=== PATIENT | female | born 1950 | race Caucasian/White ===

== ENCOUNTER 2018-10-25 02:46 | Inpatient (IN) ==
[2018-10-25 03:21] LABS: BASO# 0.03 X1000 (0.0-0.2); BASO% 0.5 % (0.0-0.8); EOS# 0.14 X1000 (0.0-0.7); EOS% 2.3 % (0.0-10.0); HEMATOCRIT 34.3 % (37.0-47.0); HEMOGLOBIN 11.8 g/dL (12.0-16.0); LYMPH# 1.24 X1000 (1.2-3.4); LYMPH% 20.2 % (20.5-51.1); MCH 29.1 PG (27-31); MCHC 34.4 g/dL (33-37); MCV 84.5 FL (81-99); MONO# 0.48 X1000 (0.11-0.59); MONO% 7.8 % (1.7-9.3); MPV 8.9 FL (7.4-10.4); NEUT# 4.24 X1000 (1.4-6.5); NEUT% 69.2 % (42.2-75.2); PLT 233 X1000 (130-400); RBC 4.06 XMIL (4.2-5.4); WBC 6.13 X1000 (4.8-10.8)
--- NOTE | 2018-10-25 03:26 | PROVIDER DOCUMENTATION ---
HPI-General Adult - General Chief Complaint: Altered Mental Status Stated Complaint: ams Time Seen by Provider: 10/25/18 02:53 Source: patient, family, EMS Allergies/Adverse Reactions: Patient Allergies Allergy/AdvReac Type Severity Reaction Status Date / Time No Known Allergies Allergy Verified 10/17/16 16:28 Home Medications: Home Medication List Medication Instructions Recorded Confirmed Last Taken Type Albuterol Sulfate [Ventolin Hfa] 18 gm IH PRN PRN 05/29/16 10/17/16 Unknown History Aspirin 81 mg PO DAILY 05/29/16 10/17/16 10/17/16 History Azelastine 0.05% Oph Solution 1 drop OP BID 05/29/16 10/17/16 Unknown History [Optivar 0.05% Oph Solution] Cetirizine HCl [Zyrtec] 10 mg PO DAILY 05/29/16 10/17/16 05/29/16 History Cyclosporine 0.05% Oph Drops 1 each BOTH EYES DAILY 05/29/16 10/17/16 Unknown History [Restasis 0.05% Oph Drops] Esomeprazole [Nexium] 40 mg PO DAILY 05/29/16 10/17/16 05/29/16 History Iron Fum/Folic Acid/Mv,Min 15 1 each PO DAILY 05/29/16 10/17/16 05/29/16 History [Centratex Capsule] Latanoprost 0.005% Oph Soln 1 drop OP HS 05/29/16 10/17/16 10/17/16 History [Xalatan 0.005% Oph Soln] Polyethylene Glycol [Polyox 1 gm MC DAILY 05/29/16 10/17/16 Unknown History [id number]] Tolterodine [Detrol] 2 mg PO BID 05/29/16 10/17/16 05/29/16 History Cyclobenzaprine [Flexeril] 10 mg PO BID #10 tablet 10/01/17 Unknown Rx Ketorolac [Toradol] 10 mg PO Q8H PRN PRN #15 tablet 10/01/17 Unknown Rx - History of Present Illness -Gen Adult Nature of Presenting Problems: Pt presents with AMS, pt was found by her family in her room, not speaking, confused, not following commands, pt has MR at baseline, upon arrival to the ED pt was close to baseline per sister, pt denies f/c, [place], cp, sob, cough, ap, n/v/d. pt is lying in bed in no acute distress. Location of Pain/Injury: reports: none Pain Radiation: reports: no radiation Quality of Pain: reports: none Severity: reports: mild Onset/Duration: reports: 1-3 hours ago Timing: reports: improving Context/Activities at Onset: reports: none Modifying Factors: improves with: nothing Associated Symptoms: reports: denies symptoms Review of Systems - Adult - REVIEW OF SYSTEMS - ADULT Constitutional: reports: see HPI Eyes: reports: no symptoms reported Ears, Nose, Mouth & Throat: reports: no symptoms reported Cardiovascular: reports: no symptoms reported Respiratory: reports: no symptoms reported Gastrointestinal: reports: no symptoms reported Genitourinary: reports: no symptoms reported Musculoskeletal: reports: no symptoms reported Integumentary: reports: no symptoms reported Neurological: reports: no symptoms reported Psychiatric: reports: no symptoms reported Endocrine: reports: no symptoms reported Hematologic/Lymphatic: reports: no symptoms reported Allergic/Immunologic: reports: no symptoms reported All Other Systems: Reviewed and Negative Past History - Adult - PAST MEDICAL HISTORY-ADULT Review of Records: reports: Old Records Reviewed, Nursing Assessment Review, Medications Reviewed, Social history reviewed & non-contributory. Major Childhood Illnesses: reports: denies history Cardiovascular: reports: HTN Respiratory: reports: denies history Gastrointestinal: reports: denies history Obstetrical/Gynecological: reports: denies history Genitourinary: reports: denies history Musculoskeletal: reports: denies history Neurological: reports: denies history Psychiatric: reports: other (mentally handicapped) Endocrine/Immune: reports: denies history Other Conditions: reports: denies history - PRIOR SURGERIES/PROCEDURES Surgical/Procedure History: reports: reviewed, not pertinent - IMMUNIZATION STATUS Childhood Immunizations: See Nurse Assessment Flu Vaccine: See Nurse Assessment - FAMILY HISTORY Family History: reviewed, not pertinent Physical Exam-General - PHYSICAL EXAM-ADULT Initial Vital Signs Reviewed: Yes - CONSTITUTIONAL General Appearance: no apparent distress - EYES Eyes: PERRL/EOMI - HEAD, EARS, NOSE, MOUTH & THROAT HENMT: normal ENT inspection - NECK Neck: normal inspection - RESPIRATORY Respiratory: no respiratory distress, no accessory muscle use - CARDIOVASCULAR Cardiovascular: regular rate, rhythm - GASTROINTESTINAL (ABDOMEN) Abdominal Exam: non tender, soft - LYMPHATIC Lymphatic: no adenopathy - MUSCULOSKELETAL Back Exam: normal inspection Extremity: normal range of motion - SKIN Integumentary: normal color - NEUROLOGIC Neurologic: grossly normal - PSYCHIATRIC Psych/Mental Status: normal mood/affect Progress - PLAN OF CARE/RESULTS Progress/Plan/Lab Results: Vital Signs - 8 hr 10/25/18 03:07 Temperature 97.6 F Pulse Rate 82 Respiratory Rate 22 Blood Pressure 160/81 O2 Sat by Pulse Oximetry 96 Laboratory Results - last 24 hr 10/25/18 02:58 WBC 6.13 RBC 4.06 L Hgb 11.8 L Hct 34.3 L MCV 84.5 MCH 29.1 MCHC 34.4 RDW Std Deviation 13.0 Plt Count 233 MPV 8.9 Neut % (Auto) 69.2 Lymph % (Auto) 20.2 L Treasure % (Auto) 7.8 Eos % (Auto) 2.3 Baso % (Auto) 0.5 Neut # (Auto) 4.24 Lymph # (Auto) 1.24 Treasure # (Auto) 0.48 Eos # (Auto) 0.14 Baso # (Auto) 0.03 Orders Category Date Time Status Nursing- Obtain EKG ONCE Care 10/25/18 03:[address] HEAD W/O CONTRAST [CT] Stat Exams 10/25/18 03:01 Taken cxr [CHEST-1 VIEW] [RAD] Stat Exams 10/25/18 03:01 Taken CBC WITH ELECTRONIC DIFF [HEME] Stat Lab 10/25/18 02:58 Completed COMPREHENSIVE METABOLIC PANEL [CHEM] Stat Lab 10/25/18 02:58 Received LACTATE, PLASMA [CHEM] Stat Lab 10/25/18 03:06 Received LIPASE [CHEM] Stat Lab 10/25/18 02:58 Received PRO B-NATRIURETIC PEPTIDE Stat Lab 10/25/18 02:58 Received TROPONIN T Stat Lab 10/25/18 02:58 Received UA [URINALYSIS] [URINALYSIS] Stat Lab 10/25/18 03:02 Uncollected EKG [EKG] Stat Ther 10/25/18 03:02 Ordered CXR concerning for aspiration, pt had O2 sat drop to mid 80s with walking on RA, will cover with abx and admit Result Diagrams: 10/25/18 02:58 10/25/18 02:58 Departure - Departure Date of Disposition Decision: 10/25/18 Time of Disposition Decision: 06:06 DIAGNOSIS: Aspiration pneumonia Qualifiers: Aspiration pneumonia type: due to vomit Laterality: bilateral Lung location: unspecified part of lung Qualified Code(s): J69.0 - Pneumonitis due to inhalation of food and vomit Disposition: ADMITTED INPATIENT 09 Certified Medical Emergency: Emergent Condition: Stable Referrals and Follow-Ups: Miky Cole DO [Primary Care Provider] - - Critical Care Note This patient required my direct & personal management of CC.: No Attestation - Physician/ PALLAVI Attestation Patient care was provided by Advanced Practice Provider:: No The physician spent face to face time with patient:: Yes Advanced Practice Provider documentation review:: Supervising physician onsite and consulted in the evaluation and care of this patient. The physician did have a face to face encounter with the patient.
[2018-10-25 03:59] LABS: AGAP 16; ALB/GLOB RATIO 1.4; ALBUMIN 4.2 g/dL (3.5-5.0); ALKALINE PHOSPHATASE 119 U/L (32-104); BUN 12 mg/dL (8-22); CALCIUM 9.5 mg/dL (8.8-10.2); CHLORIDE 90 mmol/L (98-107); COSMO 260; CREATININE 0.9 mg/dL (0.5-0.9); ESTIMATED GFR > 60; GLUCOSE 115 mg/dL (70-104); GOT 30 U/L (10-30); GPT 18 U/L (10-36); LIPASE 71 U/L (13-60); POTASSIUM 4.5 mmol/L (3.5-5.1); SODIUM 129 mmol/L (136-145); TCO2 23 mmol/L (25-35); TOTAL BILIRUBIN 0.37 mg/dL (0.20-1.00); TOTAL PROTEIN 7.1 g/dL (6.3-8.3)
[2018-10-25] MEDS ORDERED: NS 1,000 ML IV ONE (05:12)
[2018-10-25] MEDS ORDERED: MORPHINE IV ONE (05:45)
[2018-10-25] MEDS ORDERED: UNASYN 1.5 GM/NS 1.5 GM/50 ML IVPB IV ONE (05:45)
[2018-10-25 05:53] LABS: URINE SOURCE CLEAN CATCH
[2018-10-25 05:59] LABS: BILIRUBIN URINE NEGATIVE (NEGATIVE); BLOOD URINE NEGATIVE (NEGATIVE); COLOR STRAW; GLUCOSE URINE NEGATIVE (NEGATIVE); KETONE URINE NEGATIVE (NEGATIVE); LEUKOCYTES URINE NEGATIVE (NEGATIVE); NITRITE URINE NEGATIVE (NEGATIVE); PH URINE 7.5; PROTEIN URINE NEGATIVE (NEGATIVE); TURBIDITY URINE CLEAR (CLEAR); UROBILINOGEN URINE NORMAL (NORMAL)
[2018-10-25 06:00] LABS: UR EPITHELIAL CELLS <10 /HPF (<10); URINE BACTERIA NEGATIVE /HPF; URINE RBC <10 /HPF (<10); URINE WBC <10 /HPF (<10)
--- NOTE | 2018-10-25 07:03 | Diag Imaging Result Doc PS360 ---
EXAM: CT HEAD W/O CONTRAST 10/25/2018 HISTORY: ams TECHNIQUE: This exam was performed using automated exposure control, adjustment of mA or kV according to patient size, and/or use of iterative reconstruction technique. COMMENT: There is no evidence of mass effect, bleed, or abnormal extra-axial fluid collection. The visualized paranasal sinuses are clear. The calvarium is intact. Compared to the previous exam of 10/01/2017 there has been no significant change. IMPRESSION: No evidence of acute intracranial disease. Electronically signed by Wyatt Grubbs 10/25/2018 7:01 AM
--- NOTE | 2018-10-25 07:07 | Diag Imaging Result Doc PS360 ---
EXAM: CT THORAX W/O CONTRAST 10/25/2018 HISTORY: aspiration TECHNIQUE: This exam was performed using automated exposure control, adjustment of mA or kV according to patient size, and/or use of iterative reconstruction technique. COMMENT: The current examination is compared with the previous study of 10/01/2017. There are some partially calcified right paratracheal and right hilar nodes. There is pleural thickening with calcification on the right. There are calcified granulomata in the spleen and there are calcified gallstones in the gallbladder. There is an apical pleural-based nodule in the right upper lobe which has not changed. Multiple smaller dense pleural-based nodules are present particularly in the right upper lobe. There is some dependent atelectasis bilaterally as well as what is likely to be a linear fibrotic scar in the posterior costophrenic sulcus on the right. This has not changed. There is minimal fibrosis present in the inferior lingula. There is ill-defined opacity posteriorly in the left upper lobe which was not present at the time the previous study this is in a different distribution from a more laterally/pleural-based opacity which was present in the left upper lobe at the time the previous study. The regional skeleton is stable in appearance. IMPRESSION: Minimal pneumonitis in the left upper lobe posteriorly. Otherwise stable chronic findings as described above. Electronically signed by Wyatt Grubbs 10/25/2018 7:05 AM
--- NOTE | 2018-10-25 08:16 | Diag Imaging Result Doc PS360 ---
EXAM: CHEST-1 VIEW 10/25/2018 HISTORY: ams TECHNIQUE: AP portable at 0317 COMMENT: The inspiration is suboptimal. There is no focal pulmonary opacity. IMPRESSION: Poor inspiration. Electronically signed by Wyatt Grubbs 10/25/2018 8:13 AM
[2018-10-25] MEDS ORDERED: ZOFRAN IV PRN (08:52)
[2018-10-25] MEDS ORDERED: SODIUM CHLORIDE 0.9% INJ SCH (09:00)
[2018-10-25] MEDS: DUONEB (A & A) INH SCH ×3 (09:39→21:30)
--- NOTE | 2018-10-25 10:07 | EKG Report ---
Test Performed on : 10/25/2018 02:57:26 AM Test Reason : ams Blood Pressure : / mmHG Vent. Rate : 084 BPM Atrial Rate : 084 BPM P-R Int : 202 ms QRS Dur : 098 ms QT Int : 392 ms P-R-T Axes : 029 -21 015 degrees QTc Int : 463 ms Normal sinus rhythm. Possible Left atrial enlargement Left ventricular hypertrophy Abnormal ECG When compared with ECG of 01-OCT-2017 16:38, No significant change was found Unconfirmed Result
--- NOTE | 2018-10-25 11:04 | HISTORY AND PHYSICAL ---
CHIEF COMPLAINT: Altered mental status. HISTORY OF PRESENT ILLNESS: This is a 68-year-old female with a history of gastroesophageal reflux disease as well as MR and hypertension. She lives with her sister. The sister states that she heard the patient calling for help. When she in, she was unable to get her awake fully. She did state over the past 2 to 3 days, the patient has been dry heaving with no witnessed vomiting as well as complaining of abdominal pain and pain behind her right knee. The patient has experienced multiple falls with increasing general weakness over the past 3 weeks. The sister denied seeing black or bloody vomitus or stools. No fevers or chills. PAST MEDICAL HISTORY: She is mentally handicapped. Hypertension. Gastroesophageal reflux disease. PAST SURGICAL HISTORY: Hysterectomy. SOCIAL HISTORY: There is no alcohol, tobacco, or illicit drug use. She does live with her sister. ALLERGIES: No known drug allergies. HOME MEDICATIONS: A list will be obtained by the nursing staff and once verified we will review and restart it as appropriate. REVIEW OF SYSTEMS: Unable to obtain from the patient. Pertinent positives per the sister stated in the history of present illness. PHYSICAL EXAMINATION: GENERAL: This is a 68-year-old female who is lying in the bed asleep at present, in no distress. VITAL SIGNS: Blood pressure is 151/86 with a heart rate of 83, respirations are 21, temperature 98 with room air saturation of 91 to 94 percent. HEENT: Head is normocephalic, atraumatic. Mucous membranes are moist. NECK: Supple. Trachea midline. No JVD. CARDIOVASCULAR: Regular rate and rhythm. S1 and S2 are appreciated. No murmur. She has no lower extremity edema. Peripheral pulses are palpable x4 extremities. PULMONARY: Breath sounds are clear. No increased work of breathing noted. Chest rises and falls symmetric with respiration. Chest wall is nontender to palpation gastrointestinal. GASTROINTESTINAL: Abdomen is soft, nontender, nondistended with bowel sounds in all 4 quadrants. NEUROLOGIC: The patient did awaken during exam. She is alert. She is oriented to herself, her sister. She knows she is at a hospital. SKIN: Warm and dry. LABORATORIES: WBC is 6.1 with hemoglobin 11.8, hematocrit 34.3, platelets 233,000. Sodium 129, potassium 4.5, BUN 12, creatinine 0.9, glucose 115. Troponin is negative. Lipase is 71. Lactate is 3.2. Urinalysis is essentially negative. IMAGING: Chest x-ray suboptimal due to poor inspiration. CT of the chest without contrast revealed pneumonitis in the left upper lobe, otherwise, stable chronic findings. CT of the head revealed no evidence of acute intracranial disease. ASSESSMENT AND PLAN: 1. Aspiration pneumonitis. The patient will be NPO at present. We will order a swallow evaluation by Speech Therapy, blood cultures and sputum culture. Start antibiotic coverage of linezolid and cefepime with DuoNeb q.6 hours. Incentive spirometer q.4 hours when awake. 2. Hyponatremia. She was given IV fluids in the emergency room. Continue with gentle hydration, and monitor labs. Review her home medications for those that could contribute to hyponatremia. 3. Gastroesophageal reflux disease. Aware. Protonix . 4. Pain in her right posterior knee. We will get a venous Doppler to the right lower extremity. 5. Further treatments pending hospital course. Dictated by KIM Hurtado for Aisha Hicks MD cc: KIM Hurtado MD [facility]
[2018-10-25] MEDS ORDERED: LOVENOX 1 MG/KG SUBQ SCH (11:15)
[2018-10-25] MEDS: NS 1,000 ML IV SCH ×2 (11:46→23:12)
[2018-10-25] MEDS: MAXIPIME 1 GM in NS 50 ML IV SCH ×2 (11:47→23:03)
[2018-10-25] MEDS: ZYVOX 600 MG/D5W 600 MG/300 ML IVPB IV SCH ×2 (11:47→23:12)
[2018-10-25] MEDS: TYLENOL PO PRN ×2 (11:53→17:58)
[2018-10-25] MEDS: LOVENOX SUBQ SCH ×2 (15:18→23:03)
--- NOTE | 2018-10-25 21:52 | ECHO REPORT ---
ORDER DATE: 10/25/2018 MEASUREMENTS: 1. Left ventricular internal diameter diastole 4.6. 2. Septal thickness 0.7. 3. Aortic root 2.7. 4. Left atrium 3.9. SUMMARY: 1. Technically difficult study due to limited acoustic window quality. Intravenous echo contrast agent Optison was utilized to enhance endocardial definition. 2. Aortic valve is trileaflet and opens normally on 2-dimensional images. Peak gradient across the aortic valve is 24 mmHg with a mean gradient 11 mmHg. Doppler velocities across the aortic valve appear to be elevated due to dynamic left ventricular function. There is mild aortic regurgitation. Mitral, tricuspid, and pulmonic valves are without evidence of structural abnormality with trace mitral regurgitation and trace tricuspid regurgitation. The estimated systolic PA pressure by Doppler is 35 to 40 mmHg suggesting mild pulmonary hypertension. Aortic root is normal in size. 3. Normal left ventricle dimensions suggested on 2-dimensional images. Estimated left ventricular ejection fraction appears to be at least 70%. No regional wall motion abnormalities evident. Doppler suggests grade 1 left ventricular diastolic dysfunction. Left atrium is borderline enlarged. Right atrium and right ventricle are normal in size with normal right ventricular systolic function. 4. No pericardial effusion. 5. Appearance of inferior vena cava suggests normal central venous pressure. cc: MD Aisha Gaspar MD
[2018-10-25] MEDS: OPTIVAR 0.05% OPH SOLUTION BOTH EYES SCH (22:06)
[2018-10-25] MEDS: XANAX PO SCH (22:06)
[2018-10-25] MEDS: XALATAN 0.005% OPH SOLN BOTH EYES SCH (22:06)
[2018-10-26] MEDS: TYLENOL PO PRN
--- NOTE | 2018-10-26 01:56 | PULMONOLOGY CONSULTATION ---
DATE: 10/25/2018 REQUESTING PHYSICIAN: Dr. Hicks. REASON FOR CONSULTATION: Aspiration pneumonitis. HISTORY OF PRESENT ILLNESS: Ms Álvarez is a 68-year-old white female with history of an intellectual disability, who was found confused and not speaking by her family. The patient was brought to the emergency room but was near her baseline upon arrival. The patient underwent a CT scan of the brain which revealed no evidence of acute disease. The patient's sister reports that she is had several falls recently and has complained about abdominal pain. She has had periods of dry heaving. She underwent CT scan of the thorax, which reveals some minimal pneumonitis in the left upper lobe. The patient is without specific complaints. She is very poor historian, but does report some epigastric pain. PAST MEDICAL HISTORY/PROBLEM LIST: 1. Intellectual disability with mental retardation as per above. 2. Gastroesophageal reflux disease. 3. Hypertension. 4. Status post hysterectomy. SOCIAL HISTORY: The patient lives with her sister. She has no history of alcohol or tobacco use. REVIEW OF SYSTEMS: Limited when discussing with the patient. The patient reports that she did have a small dog that was recently hit by a car, but it is not clear this is a true story or not. PHYSICAL EXAMINATION: General: Reveals a well-developed, well-nourished female, resting comfortably and in no distress. Vital signs: Blood pressure 143/60, heart rate 70, respiratory rate 18, oxygen saturation 96% on room air. HEENT: Pupils are equal and reactive. Oropharynx is clear. Neck: Supple. Chest: Reveals good air entry bilaterally without wheezing or rhonchi. Cardiac: S1, S2. Abdomen: Soft. She may have minimal epigastric tenderness. Extremities: Without edema. LABORATORIES: CT scan of the thorax is reviewed. She has some nonspecific nodules which have not changed compared to 10/01/2017. She has a new nonspecific infiltrate in the left upper lobe which was not previously present. The gallbladder is visualized and she does have gallstones in the neck of the gallbladder along with higher up in the gallbladder. IMPRESSION: A 68-year-old with minor aspiration pneumonia following episode of dry heaves. The patient does report some mild epigastric pain. She has mild elevation in the alkaline phosphatase and does have gallstones in the gallbladder. RECOMMENDATIONS: 1. Agree with current antibiotic regimen. 2. We will schedule ultrasound of the abdomen to further evaluate her epigastric pain and possible cause of her nausea. cc: Lele Mcguire MD
[2018-10-26] MEDS: DUONEB (A & A) INH SCH ×4 (03:40→21:15)
[2018-10-26] MEDS: PROTONIX IV SCH (06:21)
[2018-10-26 07:48] LABS: HEMATOCRIT 31.7 % (37.0-47.0); HEMOGLOBIN 10.7 g/dL (12.0-16.0); MCH 28.8 PG (27-31); MCHC 33.8 g/dL (33-37); MCV 85.2 FL (81-99); PLT 231 X1000 (130-400); RBC 3.72 XMIL (4.2-5.4); RDW 13.1 % (11.5-14.5); WBC 5.68 X1000 (4.8-10.8)
[2018-10-26 07:49] LABS: BASO# 0.02 X1000 (0.0-0.2); BASO% 0.4 % (0.0-0.8); EOS# 0.04 X1000 (0.0-0.7); EOS% 0.7 % (0.0-10.0); LYMPH# 1.09 X1000 (1.2-3.4); LYMPH% 19.2 % (20.5-51.1); MONO# 0.41 X1000 (0.11-0.59); MONO% 7.2 % (1.7-9.3); NEUT# 4.12 X1000 (1.4-6.5); NEUT% 72.5 % (42.2-75.2)
[2018-10-26 08:04] LABS: AGAP 10; BUN 10 mg/dL (8-22); CALCIUM 8.4 mg/dL (8.8-10.2); CHLORIDE 97 mmol/L (98-107); COSMO 264; CREATININE 0.8 mg/dL (0.5-0.9); ESTIMATED GFR > 60; GLUCOSE 104 mg/dL (70-104); POTASSIUM 4.6 mmol/L (3.5-5.1); SODIUM 132 mmol/L (136-145); TCO2 25 mmol/L (25-35)
--- NOTE | 2018-10-26 08:18 | Diag Imaging Result Doc PS360 ---
EXAM: US ABDOMEN-COMPLETE INDICATION: gallstones, nausea, epigastric pain COMPARISON: 10/11/2012 FINDINGS: There are several small shadowing stones in the gallbladder lumen. There is no evidence of gallbladder wall thickening or pericholecystic fluid. The common bile duct is normal in diameter. Sonographic Payne's sign was reported to be negative. The liver is grossly unremarkable. Portal venous flow is hepatopetal. The pancreas is partially obscured by bowel gas. The visualized portion is unremarkable. The aorta and IVC are grossly unremarkable. The spleen is unremarkable. There is an extrarenal pelvis on the right noted incidentally. This is stable. The kidneys are unremarkable, otherwise. IMPRESSION: Cholelithiasis as described. Electronically signed by Alexander Ramirez 10/26/2018 8:16 AM
[2018-10-26] MEDS: RESTASIS 0.05% OPH DROPS BOTH EYES SCH (09:00)
[2018-10-26] MEDS: ZYRTEC PO SCH (09:00)
[2018-10-26] MEDS: XANAX PO SCH ×2 (09:01→22:51)
[2018-10-26] MEDS: PROZAC PO SCH (09:01)
[2018-10-26] MEDS: ASPIRIN PO SCH (09:01)
[2018-10-26] MEDS: OPTIVAR 0.05% OPH SOLUTION BOTH EYES SCH ×2 (09:02→20:26)
[2018-10-26] MEDS: ZYPREXA PO SCH (09:04)
[2018-10-26] MEDS: MAXIPIME 1 GM in NS 50 ML IV SCH (11:31)
[2018-10-26] MEDS: LOVENOX SUBQ SCH (11:32)
--- NOTE | 2018-10-26 13:06 | PROGRESS NOTE ---
DATE: 10/26/2018 SUBJECTIVE: The patient is resting comfortably. She has no complaints. She states that she wants to go home. OBJECTIVE: Vital Signs: Temperature 98.5 degrees, blood pressure 151/74, heart rate 78, respirations 18, O2 saturation 98% on room air. General: This is a chronically ill-appearing, elderly female, lying in bed in no acute distress. Heart: S1, S2 normal. Regular rate and rhythm. Lungs: Equal air entry bilaterally. No wheezing. No rales. Abdomen: Positive bowel sounds. Soft, nontender, nondistended. Extremities: There is 1+ edema in the right leg. Neurologic: The patient is alert and oriented. IMAGING AND LABORATORY DATA: White blood cell count 5.6, hemoglobin 10, hematocrit 31, platelets 231,000. Sodium 132, potassium 4.6, chloride 97, CO2 of 25, BUN 10, creatinine 0.8, glucose 104. Abdominal ultrasound shows cholelithiasis. ASSESSMENT AND PLAN: 1. Aspiration pneumonitis. Improved. The patient is now on room air, and states that she feels a lot better today. Continue with antibiotic and bronchodilator therapy. 2. Acute right popliteal deep venous thrombosis. Will transition the patient to an oral anticoagulant. 3. Cholelithiasis. Aware. The patient states that she is no longer nauseous or having abdominal pain. 4. Anxiety disorder. Continue on Xanax. 5. Developmental delay. Aware. 6. Obesity. Aware. 7. Anemia. Stable. 8. Hyponatremia. Improved. Will consult Physical Therapy. cc: Aisha Hicks MD MTDD
[2018-10-26] MEDS: ZYVOX 600 MG/D5W 600 MG/300 ML IVPB IV SCH (15:07)
[2018-10-26] MEDS: XALATAN 0.005% OPH SOLN BOTH EYES SCH (20:26)
--- NOTE | 2018-10-26 23:50 | PULMONOLOGY PROGRESS NOTE ---
DATE: 10/26/2018 SUBJECTIVE: The patient is awake, alert, and conversant. She has a dry cough. She reports no abdominal pain today. OBJECTIVE: Vital Signs: The patient has been afebrile for the last 24 hours. Blood pressure 134/60, heart rate 90, respiratory rate 16, oxygen saturation 100% on room air. HEENT: Pupils are equal and reactive. Oropharynx is clear. Neck: Supple. Chest: Reveals good air entry bilaterally with minimal crackles on the right. Cardiac: Regular rate. Normal S1, normal S2. Abdomen: Soft and without hepatosplenomegaly. Extremities: Without edema. LABORATORIES: Ultrasound of the abdomen reveals cholelithiasis, but no evidence of cholecystitis. IMPRESSION: A 68-year-old with 1. Minor aspiration pneumonia following dry heaves. 2. Epigastric pain. 3. Cholelithiasis. DISCUSSION: A 68-year-old with problems outlined above. She continues to do well. She is on room air. RECOMMENDATION: 1. Consider transition to oral antibiotic. 2. The patient can be discharged from a pulmonary standpoint. cc: Lele Mcguire MD
[2018-10-27] MEDS: MAXIPIME 1 GM in NS 50 ML IV SCH (00:27)
[2018-10-27] MEDS: LOVENOX SUBQ SCH (00:27)
[2018-10-27] MEDS: ZYVOX 600 MG/D5W 600 MG/300 ML IVPB IV SCH (02:36)
[2018-10-27] MEDS: DUONEB (A & A) INH SCH ×2 (03:20→10:10)
[2018-10-27] MEDS: PROTONIX IV SCH (06:11)
[2018-10-27 07:45] VITALS: BP 151/66
[2018-10-27 08:18] LABS: BASO# 0.03 X1000 (0.0-0.2); BASO% 0.5 % (0.0-0.8); EOS# 0.13 X1000 (0.0-0.7); EOS% 2.2 % (0.0-10.0); HEMATOCRIT 31.9 % (37.0-47.0); HEMOGLOBIN 10.7 g/dL (12.0-16.0); LYMPH# 0.94 X1000 (1.2-3.4); MCH 28.8 PG (27-31); MCHC 33.5 g/dL (33-37); MCV 85.8 FL (81-99); MONO# 0.52 X1000 (0.11-0.59); MONO% 8.9 % (1.7-9.3); NEUT# 4.25 X1000 (1.4-6.5); NEUT% 72.4 % (42.2-75.2); PLT 229 X1000 (130-400); RBC 3.72 XMIL (4.2-5.4); RDW 13.1 % (11.5-14.5); WBC 5.87 X1000 (4.8-10.8)
[2018-10-27 08:43] LABS: AGAP 9; BUN 10 mg/dL (8-22); CALCIUM 8.7 mg/dL (8.8-10.2); CHLORIDE 97 mmol/L (98-107); COSMO 264; CREATININE 0.7 mg/dL (0.5-0.9); ESTIMATED GFR > 60; GLUCOSE 104 mg/dL (70-104); POTASSIUM 4.4 mmol/L (3.5-5.1); SODIUM 132 mmol/L (136-145); TCO2 26 mmol/L (25-35)
[2018-10-27] MEDS ORDERED: AUGMENTIN PO SCH (09:00)
[2018-10-27 09:15] LABS: HEMOGLOBIN A1C 4.8 % (4.8-6.0)
[2018-10-27] MEDS: OPTIVAR 0.05% OPH SOLUTION BOTH EYES SCH (10:16)
[2018-10-27] MEDS: ASPIRIN PO SCH (10:17)
[2018-10-27] MEDS: ZYPREXA PO SCH (10:17)
[2018-10-27] MEDS: XANAX PO SCH (10:17)
[2018-10-27] MEDS: PROZAC PO SCH (10:17)
[2018-10-27] MEDS: ZYRTEC PO SCH (11:19)
[2018-10-27] MEDS: RESTASIS 0.05% OPH DROPS BOTH EYES SCH (11:20)
[2018-10-27] MEDS ORDERED: ELIQUIS PO SCH (12:00)
--- NOTE | 2018-10-30 10:51 | DISCHARGE SUMMARY ---
ADMISSION DATE: 10/25/2018 DISCHARGE DATE: 10/27/2018 FINAL DISCHARGE DIAGNOSES: 1. Aspiration pneumonitis. 2. Acute right popliteal deep venous thrombosis. 3. Asymptomatic cholelithiasis. 4. Anxiety disorder. 5. Developmental delay. 6. Obesity. 7. Hyponatremia. 8. Anemia. CONSULTATIONS: Pulmonary consultation with Dr. Mcguire. IMAGIN. Abdominal ultrasound performed on 10/26/2018 that revealed cholelithiasis. 2. Chest CT performed on 10/25/2018 that revealed pneumonitis in the left upper lobe. HOSPITAL COURSE: Ms. Álvarez is a 68-year-old female with a history of multiple medical problems, who presented to the ER with a chief complaint of nausea and vomiting. On admission, a chest CT was done that revealed left upper lobe pneumonitis. In light of these findings, the patient was admitted for further treatment and evaluation. The patient was seen by the welding manager as well. The patient was started on broad-spectrum IV antibiotics and supplemental oxygen, plus bronchodilator therapy. With treatment, the patient's respiratory status improved and she was able to be weaned off of supplemental oxygen. The patient did complain of some pain in her right leg, so a lower extremity venous Doppler was performed on the leg, which revealed an acute DVT involving the popliteal vein. The patient was started on full-dose Lovenox, and this was transitioned to Eliquis during the hospitalization. After discussion with the patient's outpatient pharmacy, the patient's anticoagulation was switched to Xarelto due to insurance coverage issues. The patient continued to improve clinically, and was ultimately cleared for discharge home. DISCHARGE MEDICATIONS: 1. Xarelto 15 mg oral twice a day x20 days. 2. Xarelto 20 mg oral daily, to be started on 11/17/2018. 3. Augmentin 875/125 one tablet oral every 12 hours x7 days. 4. Detrol 2 mg oral twice a day. 5. Xalatan 1 drop to the eyes at bedtime. 6. Multivitamin 1 tablet oral daily. 7. Nexium 40 mg p.o. daily. 8. Zyrtec 10 mg p.o. daily. 9. Aspirin 81 mg p.o. daily. 10. Flexeril 10 mg p.o. twice a day. 11. Aspirin 81 mg p.o. daily. 12. Xanax 1 mg oral at bedtime. 13. Fluoxetine 40 mg p.o. daily. 14. Olanzapine 10 mg p.o. daily. 15. Losartan/hydrochlorothiazide 1 tablet oral daily. DISCHARGE DIET: Low-sodium, low-cholesterol diet. ACTIVITY: As tolerated. FOLLOWUP INSTRUCTIONS: The patient will need to follow up with Dr. Cole on 11/07/2018 at 1:20 p.m. cc: MD Miky Weaver DO
--- NOTE | 2018-10-30 11:03 | Extremity Venous Study ---
PROCEDURE NAME: Venous U/S Right Leg - 10/25/2018 REFERRING PHYSICIAN: Dr. Hicks. TELEX OPERATOR: Calle. INTERPRETING PHYSICIAN: Dr. Brantley. FINDINGS: The right lower extremity was imaged. The common femoral, superficial femoral, deep femoral, popliteal, posterior tibial, peroneal, and greater saphenous veins are imaged. The left common femoral vein is imaged for comparison purposes. There appears to be some partial occlusion of the right popliteal vein. Flow is limited. This is consistent with an acute DVT in the popliteal vein, even though it was not totally occlusive. INTERPRETATION: Deep venous thrombosis involving the right popliteal vein. cc: MD Aisha Combs MD
== END 2018-10-27 16:25 | disposition home or self-care (01) | DRG 178 ==
LOC: ED 02:46 → EDIPHOLD 10:08 → 3N 11:51
PROVIDERS: ATTEND Internal Medicine
CPT/HCPCS: 70450; 71010; 71045; 71250; 76700; 80048; 80053; 81001; 82948; 83036; 83605; 83690; 83880; 84484; 85025; 87040; 87070; 87205; 93005; 93306; 93971; 94640; 94761; 94799; 96365; 96368; 97116; 97162; 97530; 99285; A9270; C8929; C9113; J0295; J0692; J1650; J2020; J2270; J7030; Q9957; S0164; XXXXX